=== PATIENT | female | born 1975 | race Caucasian/White ===

== ENCOUNTER 2016-10-31 10:24 | Emergency (ER) | payer OTHER ==
[2016-10-31 10:50] VITALS: BP 113/74
--- NOTE | 2016-10-31 11:10 | RAD ---
HISTORY: Cough, fever COMPARISONS: March 15, 2007 VIEWS: 4: Frontal dual-energy and lateral views of the chest. FINDINGS: CARDIOMEDIASTINAL SILHOUETTE: The cardiomediastinal silhouette is normal. WEN: The wen are normal. PLEURA: The costophrenic angles are sharp. No pleural abnormalities are noted. LUNG PARENCHYMA: The lungs are clear. ABDOMEN: The upper abdomen is clear. There is no subphrenic gas. BONES AND SOFT TISSUES: No bone or soft tissue abnormalities are noted. OTHER: None. IMPRESSION: NO ACTIVE CARDIOPULMONARY DISEASE.
--- NOTE | 2016-10-31 11:46 | UC ---
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 Cough for three days and started to become "a little bit" productive last night. Chest discomfort "from coughing " and back pain for one day. Denies any other symptoms. Patient's daughter has similar but less sever and shorter duration symptoms three weeks ago and was diagnosed with a viral illness. 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 PCP Gina Gardner." Temp 101.7 this AM and reduced with tylenol. has menses currently. mildly productive cough. has been sleeping a lot. + body aches, no rash. appetite down slighty. no vomiting, nausea or diarrhea. no ST, sinus pain or ear ache. no stiff neck. no dysuria. c/o a lot of night time perspiration. - History of Current Complaint Chief Complaint: UCGeneralIllness Stated Complaint: FEVER, ACHY BODY, COUGH Time Seen by Provider: 10/31/16 10:50 Hx Last Menstrual Period: 10/29/16 - Allergies/Home Medications Allergies/Adverse Reactions: Allergies Allergy/AdvReac Type Severity Reaction Status Date / Time environment Allergy Sneezing Uncoded 10/31/16 10:45 Home Medications: Home Medications Acetaminophen [Acetaminophen Extra Stren] 1,000 mg PO Q6H PRN 10/31/16 [History Confirmed 10/31/16] guaiFENesin ER TAB [Mucinex*] 600 mg PO ONCE 10/31/16 [History Confirmed ] PMH/Surg Hx/FS Hx/Imm Hx Previously Healthy: Yes - Surgical History Surgical History: Yes Surgery Procedure, Year, and Place: Gastric Bypass, 2011, [place]; Bilateral Carpal Tunnel, 2009, [place] - Family History Known Family History: Positive: Hypertension - Social History Alcohol Use: Occasionally Substance Use Type: None Smoking Status (MU): Never Smoked Tobacco Review of Systems Constitutional: Fever, Chills, Fatigue Skin: Negative Eyes: Negative ENT: Negative Respiratory: Cough Cardiovascular: Negative Gastrointestinal: Negative Genitourinary: Negative Motor: Negative Neurovascular: Negative Musculoskeletal: Myalgia Neurological: Negative Psychological: Negative All Other Systems Reviewed And Are Negative: Yes Physical Exam Triage Information Reviewed: Yes Appearance: Ill-Appearing - mild, dressed well with make up. very pleasant Vital Signs: Initial Vital Signs Temp 98 F 10/31/16 10:42 Pulse 102 10/31/16 10:42 Resp 18 10/31/16 10:42 BP 113/74 10/31/16 10:42 Pulse Ox 97 10/31/16 10:42 Vital Signs Reviewed: Yes Eye Exam: Normal ENT Exam: Normal ENT: Positive: Hearing grossly normal, Pharynx normal, TMs normal. Negative: Pharyngeal erythema, Nasal congestion, Tonsillar swelling, Tonsillar exudate Dental Exam: Normal Neck exam: Normal Neck: Positive: Supple, Nontender, No Lymphadenopathy. Negative: Nuchal Rigidity Respiratory Exam: Normal Respiratory: Positive: Lungs clear, Normal breath sounds, No respiratory distress, No accessory muscle use. Negative: Crackles, Rhonchi, Stridor, Wheezing Cardiovascular Exam: Normal Cardiovascular: Positive: RRR, No Murmur, Pulses Normal Abdominal Exam: Normal Abdomen Description: Positive: Nontender, Soft. Negative: CVA Tenderness (R), CVA Tenderness (L) Bowel Sounds: Positive: Present Musculoskeletal Exam: Normal Neurological Exam: Normal Psychological Exam: Normal Skin Exam: Normal UC Diagnostic Evaluation - Laboratory O2 Sat by Pulse Oximetry: 97 Respiratory Course/Dx - Course Course Of Treatment: CXR neg, flu neg. UA with blood (with callahan) - Differential Dx/Diagnosis Differential Diagnosis/HQI/PQRI: Bronchitis, Influenza, Lower Resp Infection, Sinusitis, Other - viral syndrome Provider Diagnoses: viral syndrome Discharge - Discharge Plan Condition: Stable Disposition: HOME Prescriptions: Benzonatate CAP* [Tessalon 100 MG CAP*] 100 mg PO TID #30 cap Patient Education Materials: Viral Syndrome (ED) Referrals: Cornelia Gardner MD [Primary Care Provider] - Additional Instructions: Chest xray is negative for any pneumonia. Make sure to hydrate yourself well. Flu swab is negative. continue with tylenol and or ibuprofen for fevers and body aches. You should follow up if your symptoms worsen. Otherwise, follow up with your PCP in 2 days. We talked about the majority of bronchitis cases are viral.
== END 2016-10-31 12:27 | disposition home or self-care (01) ==
LOC: UCCORT 10:24
DX: B34.9 Viral infection, unspecified (principal); Z98.84 Bariatric surgery status
CPT/HCPCS: 71020; 81003; 87502; 99212; G0463

== ENCOUNTER 2016-11-05 09:03 | Emergency (ER) | payer OTHER ==
[2016-11-05 09:37] VITALS: BP 116/80
--- NOTE | 2016-11-05 10:10 | UC ---
Throat Pain/Nasal Nish HPI - HPI Summary HPI Summary: Pt seen 10/31/16 and dx w/ viral illness- CXR normal, negative flu and UA ( except blood). Starting yesterday pt c/o sore throat and "lesions inside my cheek/throat". Also broke out in "fever rash" on chest yesterday, denies itch/ pain. States she still having fever, tmax 102.7. Taking Tylenol 1000mg prn, last dose this morning 0530. Also taking tessalon cap prn, last dose 0200 today. having sore throat, fever blisters in mouth, laryngitis, persistent fever. now her and kids have it. did go to [place] recently 2 weeks ago but no tick bites. potential mosquito bite in [facility]. [ End ] - History of Current Complaint Chief Complaint: UCGeneralIllness Stated Complaint: [id number]-DI-AKZOSG,FEVER Time Seen by Provider: 11/05/16 10:02 Hx Obtained From: Patient Hx Last Menstrual Period: 10/29/16 ?: No Onset/Duration: Gradual Onset Associated Signs & Symptoms: Positive: Hoarseness, Nasal Discharge, Fever, Rash - Allergies/Home Medications Allergies/Adverse Reactions: Allergies Allergy/AdvReac Type Severity Reaction Status Date / Time environment Allergy Sneezing Uncoded 11/05/16 09:32 PMH/Surg Hx/FS Hx/Imm Hx Previously Healthy: Yes - Surgical History Surgical History: Yes Surgery Procedure, Year, and Place: Gastric Bypass, 2011, [place]; Bilateral Carpal Tunnel, 2008, [place] - Family History Known Family History: Positive: Hypertension - Social History Occupation: Employed Full-time Lives: With Family Alcohol Use: Occasionally Substance Use Type: None Smoking Status (MU): Never Smoked Tobacco Review of Systems Constitutional: Fever, Chills, Fatigue Skin: Rash ENT: Sore Throat Respiratory: Cough Musculoskeletal: Myalgia All Other Systems Reviewed And Are Negative: Yes Physical Exam Triage Information Reviewed: Yes Appearance: Well-Appearing, No Pain Distress, Well-Nourished Vital Signs: Initial Vital Signs Temp 101.6 F 11/05/16 09:26 Pulse 118 11/05/16 09:26 Resp 18 11/05/16 09:26 BP 116/80 11/05/16 09:26 Pulse Ox 98 11/05/16 09:26 Vital Signs Reviewed: Yes Eye Exam: Normal ENT Exam: Normal Dental Exam: Normal Dental: Positive: Other: - mouth with white sores in the lateral gums b/l and upper gums with sloughing of the gum line. no ecchymosis or petechiae Neck exam: Normal Neck: Positive: 1 Respiratory Exam: Normal Cardiovascular Exam: Normal Abdominal Exam: Normal Musculoskeletal Exam: Normal Neurological Exam: Normal Psychological Exam: Normal Skin Exam: Normal Throat Pain/Nasal Course/Dx - Course Course Of Treatment: 2 days ago neg flu , CXR and today neg strep . viral illness / exanthem at this time, does not look like strep rash . if fever persists in 2 days then it is day 10 of fever and will at that time start antibiotics . she is dehydrated and will check labs at this time. difficulty drawing labs and only partially completed. advised patient if fever continues, or any diarrhea , vomiting to go to ED for IV hydration. she declined hydration at this time in our UC. - Differential Dx/Diagnosis Differential Diagnosis/HQI/PQRI: Laryngitis, Peritonsillar Abscess, Pharyngitis , Sinusitis, Tonsillitis, URI Provider Diagnoses: Viral illness / fever / pharyngitis Discharge - Discharge Plan Condition: Good Disposition: HOME Prescriptions: Cefuroxime Axetil [Ceftin 500 MG TAB] 500 mg PO BID #20 tab Magic Mouth Was-RICCO/MAAL/LIDO* 5 ml SWISH SPIT QID PRN #1 bottle PRN Reason: Pain Patient Education Materials: Fever in Adults (ED) Referrals: Cornelia Gardner MD [Primary Care Provider] - 1 Day Additional Instructions: we discussed if your fever continues for another 48 hours then start the antibiotics for fever of unknown origin. We did draw blood work today to further evaluate your illness. If your symptoms worsen please go to the emergency room for further evaluation and potential fluid replacement.
== END 2016-11-05 10:58 | disposition home or self-care (01) ==
LOC: UCCORT 09:03
DX: B34.9 Viral infection, unspecified (principal); R50.9 Fever, unspecified; J02.9 Acute pharyngitis, unspecified; K13.70 Unspecified lesions of oral mucosa; Z98.84 Bariatric surgery status
CPT/HCPCS: 87040; 87651; 99212; G0463

== ENCOUNTER 2016-11-17 12:24 | Emergency (ER) | payer OTHER ==
[2016-11-17 12:57] VITALS: BP 106/77
--- NOTE | 2016-11-17 13:59 | UC ---
Throat Pain/Nasal Nish HPI - HPI Summary HPI Summary: 41 y/o female presents to the urgent care c/o or persisting oral thrust since she was discharge for the [facility] 11/11/2016 for B/L pneumonia and sepsis. Pt reports she was D/c home with Fluconazole ad Diflucan rinse, but she has finished and her tongue is worse. She hasn't been able to well or drink ay fluids since then. Pt denies fever, chest pain, SOB, Dizziness, N/V/D. Pt reports she has an appt with her PCP this coming for f/u and that all blood work and record where going to be faxed to her PCP from [facility]. Pt has not other complains - History of Current Complaint Chief Complaint: UCGeneralIllness Stated Complaint: THRUSH Time Seen by Provider: 11/17/16 12:47 Hx Obtained From: Patient Hx Last Menstrual Period: 11/12/16 ?: No Onset/Duration: Gradual Onset, Lasting Days, Still Present Severity: Severe Pain Intensity: 9 - to swallow Pain Scale Used: 0-10 Numeric Cough: None Associated Signs & Symptoms: Positive: Dysphagia. Negative: Sinus Discomfort, Nasal Discharge, Fever - Epiglottits Risk Factors Epiglottis Risk Factors: Negative - Allergies/Home Medications Allergies/Adverse Reactions: Allergies Allergy/AdvReac Type Severity Reaction Status Date / Time environment Allergy Sneezing Uncoded 11/17/16 12:42 PMH/Surg Hx/FS Hx/Imm Hx - Additional Past Medical History Additional PMH: Carpal tunnel syndrome Previously Healthy: Yes - Surgical History Surgical History: Yes Surgery Procedure, Year, and Place: Gastric Bypass, 2011, [place]; Bilateral Carpal Tunnel, 2008, [place] - Family History Known Family History: Positive: Hypertension - Social History Occupation: Employed Full-time Lives: With Family Alcohol Use: Occasionally Substance Use Type: None Smoking Status (MU): Never Smoked Tobacco Review of Systems Constitutional: Negative Skin: Negative Eyes: Negative ENT: Other - severe oral trust spreading on the tongue, pharynx, lips Respiratory: Negative Cardiovascular: Negative Gastrointestinal: Negative Genitourinary: Negative Motor: Negative Neurovascular: Negative Musculoskeletal: Negative Neurological: Negative Psychological: Negative All Other Systems Reviewed And Are Negative: Yes Physical Exam Triage Information Reviewed: Yes Appearance: Well-Appearing, No Pain Distress, Well-Nourished, Obese Vital Signs: Initial Vital Signs Temp 98.3 F 11/17/16 12:44 Pulse 140 11/17/16 12:44 Resp 16 11/17/16 12:44 BP 106/77 11/17/16 12:44 Pulse Ox 99 11/17/16 12:44 Vital Signs Reviewed: Yes Eye Exam: Normal Eyes: Positive: Conjunctiva Clear - PERRLA, EOMI, fudi grossly normal ENT: Positive: Normal ENT inspection, Hearing grossly normal, Pharyngeal erythema, TMs normal, Other: - severe creamy and yellowish plaques adherent to the tongue and oral mucosa and pharynx. lips with crusted fissures. Dental Exam: Normal Neck exam: Normal Neck: Positive: Supple, Nontender, No Lymphadenopathy Respiratory Exam: Normal Respiratory: Positive: Chest non-tender, Lungs clear, Normal breath sounds, No respiratory distress Cardiovascular Exam: Normal Cardiovascular: Positive: RRR, No Murmur, Pulses Normal, Brisk Capillary Refill Abdominal Exam: Normal Abdomen Description: Positive: Nontender, No Organomegaly, Soft. Negative: CVA Tenderness (R), CVA Tenderness (L) Bowel Sounds: Positive: Present Musculoskeletal Exam: Normal Musculoskeletal: Positive: Strength Intact, ROM Intact, No Edema Neurological Exam: Normal Psychological Exam: Normal Skin Exam: Normal Throat Pain/Nasal Course/Dx - Course Course Of Treatment: 41 y/o female presents to the urgent care c/o or persisting oral thrush since she was discharge for the [facility] 2016 for B/L pneumonia and sepsis. Pt reports she was D/c home with Fluconazole ad Diflucan rinse, but she has finished and her tongue is worse. She hasn't been able to well or drink ay fluids since then. Pt denies fever, chest pain, SOB, Dizziness, N/V/D. Pt reports she has an appt with her PCP this coming for f/u and that all blood work and records where going to be faxed to her PCP from [facility]. Hx obtained. Pt's HR is 140bpn, and asymptomatic. EKG ordered, reading: Sinus tachychardia w/ a HR of 127bpm w/o any ST-elevations. Pt with a severe oral candidiasis: severe creamy and yellowish plaques adherent to the tongue and oral mucosa and pharynx. lips with crusted fissures. Pt unaable. Pt unable to eat or drink fluids. Pt srtrongly advised to the ER for further evaluation and treatment of her Sinus tachychardia. Pt refused and requested only the treatment for Oral candidiasis.I extensively discussed with the patient the benefits and risk of leaving AMA. I also discussed the alternatives to leaving AMA, however, the patient still insists to leave the Urgent care AMA.. The nurse also strongly recommended that the patient should not leave AMA. Patient understands the risk of leaving AMA, which includes but is not restricted to . Patient is Alert and oriented times three and patient verbalizes understanding. Patient has full capacity and is cognitively intact. Patient signed the AMA form.Patient Rx Fluconazole PO, Chlotrimazole jose cruz, Mouth Magic wash to alleviate symptoms. Patient was also advised to go to ED if he changes his mind or if the symptoms worsen or other symptoms appear. Pt states she will f/u appt with her PCP on . Patient understands and agrees.Leaves the clinic ambulating A&OX3. - Differential Dx/Diagnosis Differential Diagnosis/HQI/PQRI: Laryngitis, Peritonsillar Abscess, Pharyngitis , Other - oral thrush Provider Diagnoses: 1- Oral thrush. 2- Sinus tachychardia Discharge - Discharge Plan Condition: Stable Disposition: AGAINST MEDICAL ADVICE Prescriptions: Clotrimazole JOSE CRUZ* [Mycelex Jose Cruz*] 10 mg MT SEE INSTRUCTIONS #35 jose cruz Fluconazole [Fluconazole 200 mg tab] 200 mg PO DAILY #14 tab Magic Mouth Was-RICCO/MAAL/LIDO* 5 ml SWISH SPIT QID #1 bottle Patient Education Materials: Oral Candidiasis (ED), Tachycardia (ED) Referrals: Cornelia Gardner MD [Primary Care Provider] - 2 Days Additional Instructions: 1- Please go immediately to the ER for further evaluation and treatment on your Sinus tachycardia to r/o PE, [place], pneumonia etc. 2- Please take the full course of the antifungal medications as directed. 3-Please f/u with your PCP on in your schedule appt as you mention for further management
== END 2016-11-17 13:48 | disposition left against medical advice (07) ==
LOC: UCCORT 12:24
DX: B37.0 Candidal stomatitis (principal); R00.0 Tachycardia, unspecified; Z53.21 Procedure and treatment not carried out due to patient leaving prior to being seen by health care provider
CPT/HCPCS: 93005; 99212; G0463

== ENCOUNTER 2017-07-30 13:40 | Emergency (ER) | payer OTHER ==
--- OUTSIDE RECORDS SUMMARY | 2017-07-30 14:57 | XMS REPORT ---
:1975 External Reference #:[id number] Author Organization [facility] Address [address] [place] [address] Phone [phone] Care Team Providers Name Role Phone Gordon Melo NP Care Team Information Social Sciences Lecturer Unavailable Gordon Melo NP Primary Care Physician Unavailable Payers Type Date Identification Numbers Payment Provider Subscriber Commercial Policy Number: [id number] [facility] Cassandra Pate PayID: [id number] [address] [place] [address] Problems Date Description Provider Status Onset: 07/16/2017 Abnormal weight gain Joshua Rubio MD Active Onset: 07/16/2017 Abdominal pain Joshua Rubio MD Active Onset: 07/16/2017 Nausea and vomiting Joshua Rubio MD Active Family History Date Family Member(s) Problem(s) Comments General Non Contributory Father Diabetes Mellitus Type 2 Social History Type Date Description Comments Marital Status Home Environment Lives With spouse 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 Cigarette Use Never Smoked Cigarettes Smokeless Tobacco Never Used Smokeless Tobacco ETOH Use Never used alcohol Recreational Drug Use Never Used Drugs Smoking Patient denies history of smoking Daily Caffeine Consumes on average 1 cup of regular coffee per day Allergies, Adverse Reactions, Alerts Date Description Reaction Status Severity Comments 06/14/2017 NKDA active Medications Medication Date Status Form Strength Qnty SIG Indications Ordering Provider Zofran 07/16/ Active Tablets 4mg 90tabs 1 by mouth R11.2 Joshua Rubio, 2018 three times MD a day as needed Omeprazole 07/16/ Active Capsules DR 20mg 90caps 1 tab by R11.2 Joshua Rubio2017 mouth every MD day every morning Vitamin D-3 00/ Active Capsules 1000Unit 1 cap once Unknown 0000 a day. Iron 00/ Active Tablets 71(65Fe) 1 tabl by Unknown 0000 mg mouth daily Vitamin B12 / Active Tablets ER 5000mcg 1 by mouth Unknown 0000 once a day Magnesium / Active Tablets 200mg 1 by mouth Unknown 0000 every day Albuterol / Active Nebulizer (2.5mg/3ML nebulized Unknown Sulfate 0000 ) 0.083% every [address] [facility] / Active Capsules 600mg 1 po qd Unknown Wort 0000 Loratadine / Active Tablets 10mg 1 by mouth Unknown 0000 every day Symbicort / Active Aerosol 160-4.5mcg 2 puff Unknown 0000 /Act twice a day Vital Signs Date Vital Result Comment 07/16/2017 BP Systolic Sitting Right Arm 118 mmHg BP Diastolic Sitting Right Arm 80 mmHg Heart Rate 103 /min Respiratory Rate 18 /min Height 64 inches 5'4" Weight 190.00 lb BMI (Body Mass Index) 32.6 kg/m2 BSA (Body Surface Area) 1.91 m2 [place] body weight in kilograms 54 07/16/2017 BP Systolic Sitting Left Arm 98 mmHg BP Diastolic Sitting Left Arm 74 mmHg Heart Rate 75 /min Respiratory Rate 16 /min Weight 190.00 lb O2 % BldC Oximetry 94 % Ora 06/17/2017 BP Systolic Sitting Left Arm 100 mmHg BP Diastolic Sitting Left Arm 72 mmHg Heart Rate 87 /min Respiratory Rate 16 /min Weight 196.00 lb O2 % BldC Oximetry 98 % Ora Results Test Date Test Result H/L Range Note Allergens,Zone 1 06/17/2017 mRast Class (Text Only) (SEE NOTE) 1, 2 D Pteronyssinus <0.10 kU/L Class 0 1 D Farinae Mite <0.10 kU/L Class 0 1 Cat Hair/Dander <0.10 kU/L Class 0 1 Dog Hair/Dander <0.10 kU/L Class 0 1 Bluegrass,[place] <0.10 kU/L Class 0 1 [place] Grass <0.10 kU/L Class 0 1 Bahia Grass <0.10 kU/L Class 0 1 Cockroach,Honduran <0.10 kU/L Class 0 1 Penicillium Not <0.10 kU/L Class 0 1 Cladosporium Herbarum <0.10 kU/L Class 0 1 Apergillis Fumigatus Ige <0.10 kU/L Class 0 1 Mucor Racemosus <0.10 kU/L Class 0 1 Alternaria Alternata <0.10 kU/L Class 0 1 Stemphylium Bot <0.10 kU/L Class 0 1 Birch,White <0.10 kU/L Class 0 1 [place],White <0.10 kU/L Class 0 1 Elm,Honduran (White) <0.10 kU/L Class 0 1 Rk,White <0.10 kU/L Class 0 1 Hazelnut Tree T004 Ige <0.10 kU/L Class 0 1 [place],White <0.10 kU/L Class 0 1 [place],White <0.10 kU/L Class 0 1 Mcmullen,Mountain <0.10 kU/L Class 0 1 Ragweed,Short/ <0.10 kU/L Class 0 1 Mugwort <0.10 kU/L Class 0 1 Plantain,Tristanian <0.10 kU/L Class 0 1 Pigweed,Rough <0.10 kU/L Class 0 1 Sheep Pala (DO <0.10 kU/L Class 0 1 Nettle <0.10 kU/L Class 0 1 Maple/Morgan Ige T001 <0.10 kU/L Class 0 1, 3 Laboratory test finding 06/17/2017 Immunoglobulin E,Total 5 IU/mL 0-100 1, 4 CBS W/Automated Diff 06/17/2017 White Blood Count 9.3 K/uL 3.1-10.7 1 Red Blood Count 4.72 M/uL 3.90-5.40 1 Hemoglobin 14.8 gm/dL 11.6-15.8 1 Hematocrit 43.8 % 36.0-46.1 1 Mean Cell Volume 92.8 fl 80.9-99.0 1 Mean Corpuscular HGB 31.4 pg 25.9-32.7 1 Mean Corpuscular HGB Conc 33.8 g/dL 30.8-34.3 1 Platelet Count 204 K/uL 155-360 1 Red Cell Distri Width SD 43.8 fl 3-47 1 Red Cell Distri Width %CV 13.0 % 11.7-14.4 1 Mean Platelet Volume 11.3 fL 8.9-12.4 1 Neut% 73.3 % High 40.4-72.8 1 Lymph % 17.3 % Low 20.0-42.0 1 Posey % 8.2 % 4.3-13.2 1 Eo% 1.0 % 0.0-6.6 1 Bas% 0.2 % 0.0-1.1 1 Neut# 6.82 K/uL 1.8-7.0 1 Lymph # 1.61 K/uL 1.0-4.0 1 Posey # 0.76 K/uL 0.3-0.9 1 Eos # 0.09 K/uL 0.0-0.5 1 Baso # 0.02 K/uL 0.0-0.1 1 Fungal Culture With Smear 11/11/2016 Fungal Fluorochrome Stain Fungus Stain 5, 6 Fungal Culture; Other Sources Fungus (Mycology <SEE NOTE> 5, 7 Vitamin B12 And Folate 11/11/2016 Vitamin B12 > 6000 pg/mL High 200- 900 8 Folic Acid 18.1 ng/mL High 3.1-17.5 8 Laboratory test finding 11/11/2016 Ferritin 549 ng/mL High 8-252 8 Vitamin D,25-Hydroxy 46.0 ng/mL 30.0-100.0 8, 9 Ebv Acute Infection 11/11/2016 Ebv AB Vca,Igm >160.0 U/mL High 0.0- 35.9 8, 10 Antibodies Ebv Early Antigen AB, IgG 29.0 U/mL High 0.0-8.9 8, 11 Ebv AB Vca,Igg 560.0 U/mL High 0.0-17.9 8, 12 Ebv Nuclear Antigen AB, Igg <18.0 U/mL 0.0-17.9 8, 13 Ebv Interpretation (SEE NOTE) 8, 14 Lyme AB/Western Blot 11/11/2016 Lyme Total AB/Reflex < 0.91 ISR 0.00- 0.90 8, 15 Reflex To WB Lyme Disease Antibody,QT,Igm < 0.80 index 0.00-0.79 8, 16 Laboratory test finding 11/11/2016 Mycoplasma Pneumoniae 9730 U/mL High 0- 769 8, 17 IgM Mycoplasma Pneumoniae IgG 1597 U/mL High 0-99 8, 18 1 J30.9 2 Levels of Specific IgE Class Description of Class ----- < 0.10 0 Negative 0.10 - 0.31 0/I Equivocal/Low 0.32 - 0.55 I Low 0.56 - 1.40 II Moderate 1.41 - 3.90 III High 3.91 - 19.00 IV Very High 19.01 - 100.00 V Very High >100.00 Very High 3 Performed at: [address] [id number] [employer]: Gregory Conley MD, Phone: [phone] Test(s) [id number] Cockroach, [place]uran; 532327- O121-ViL Kendra Richey were developed and had performance characteristics determined by [facility]. These tests have not been cleared or approved by the U.S. Food and Drug Administration. The FDA has determined that such clearance or approval is not necessary. These tests are used for clinical purposes. These should not be regarded as investigational or for research. 5 KIKE APODACA 11/20 TREVOR 6 Final report: Result 1 PER/Calcofluor preparation: no fungus observed 7 Fungus (Mycology) Culture Final report Result 1 No yeast or mold isolated after 4 weeks Performed at: [address] [id number] [employer]: Oma Gutierrez MD, Phone: [phone] PNEUMONIA, SESIS 9 Vitamin D deficiency has been defined by the [place] of Medicine and an Endocrine Society practice guideline as a level of serum 25-OH vitamin D less than 20 ng/mL (1,2). The Endocrine Society went on to further define vitamin D insufficiency as a level between 21 and 29 ng/mL (2). 1. IOM ([place] of Medicine). 2010. Dietary reference intakes for calcium and D. [place]: The National Academies Press. 2. Vivienne MF, Ishmael KEENAN, Sonal ROBLEDO, et al. Evaluation, treatment, and prevention of vitamin D deficiency: an Endocrine Society clinical practice guideline. JCEM. 2010; 96(4):1911-30. Performed at: [address] [id number] [employer]: Oma Gutierrez MD, Phone: [phone] 10 Negative <36.0 Equivocal 36.0 - 43.9 Positive >43.9 11 Hepatitis A, Hepatitis C and HIV antibodies may cross-react with this assay. Negative < 9.0 Equivocal 9.0 - 10.9 Positive >10.9 12 Negative <18.0 Equivocal 18.0 - 21.9 Positive >21.9 13 Negative <18.0 Equivocal 18.0 - 21.9 Positive >21.9 14 EBV Interpretation Chart Interpretation EBV-IgM EA(D)-IgG VCA-IgG EBNA-IgG EBV Seronegative - - - - Early Phase + - - - Acute Primary + +or- + - Infection Convalescence/Past - +or- + + Infection Reactivated +or- + + + Infection + Antibody Present - Antibody Absent 15 Negative <0.91 Equivocal 0.91 - 1.09 Positive >1.09 16 Negative <0.80 Equivocal 0.80 - 1.19 Positive >1.19 IgM levels may peak at 3-6 weeks post infection, then gradually decline. 17 Negative <770 Clinically significant amount of M. pneumoniae antibody not detected. Low Positive 770 - 950 M. pneumoniae specific IgM presumptively detected. It is recommended that another sample be collected 1-2 weeks later to assure reactivity. Positive >950 Highly significant amount of M. pneumoniae specific IgM antibody detected. 18 Negative: <100 Indeterminate: 100 - 320 Positive: >320 The reference interval established is intended as a baseline only. Values >100 may indicate a recent infection with Mycoplasma pneumoniae and need to be confirmed either by a positive IgM result and/or an additional specimen drawn 2-4 weeks later showing a significant increase in antibody levels. Performed at: [address] [id number] [employer]: Oma Gutierrez MD, Phone: [phone] Procedures Date CPT Code Description Status 06/25/2017 75385 Bronchospasm Provocation Evaluation Multi Spirometric Completed Determinati 06/25/2017 50229 Spirometry Completed 07/21/2010 00810 Anesthesia,Neuraxial Labor Completed Encounters Type Date Location Provider CPT E/M Dx Office Visit 07/16/2017 1:[place] [address] R11.2 R10.9 R63.5 Office Visit 06/17/2017 1:00p [place] [address] J41.0 J30.9 R06.02 Plan of Care Future Appointment(s):08/24/2017 10:10 am - Joshua Rubio MD at Operating Room10/01 1:30 pm - Joshua Rubio MD at GI01/17/2018 4:00 pm - Pedro Luis Garcia MD at Jhdusqmjusa79/04/2018 - Joshua Rubio MDR11.2 Nausea with vomiting, unspecifiedNew Medication:Zofran 4 mgOmeprazole 20 mgComments:EGDFollow up:F/U in 2 hrbhpnY02.9 Unspecified abdominal painNew Labs:Comprehensive Metabolic PanelAmylaseLipaseNew Xrays:CT, Abdomen & Pelvis W ContrastUltrasound, Abdomen LimitedComments:? internal hernia vs gallbladder fhnqnhO08.5 Abnormal weight gainComments:Potentially failed R-en-Y
--- OUTSIDE RECORDS SUMMARY | 2017-07-30 14:57 | XMS REPORT ---
:1975 External Reference #:[id number] Author Organization [facility] Address [address] [place] [address] Phone [phone] Care Team Providers Name Role Phone Gordon Melo NP Care Team Information Chassis Inspector Unavailable Gordon Melo NP Primary Care Physician Unavailable Payers Type Date Identification Numbers Payment Provider Subscriber Commercial Policy Number: [id number] 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 Cigarette Use Never Smoked Cigarettes Smokeless [...] kg/m2 BSA (Body Surface Area) 1.91 m2 [place] body weight in kilograms 54 07/16/2017 BP [...] Bahia Grass <0.10 kU/L Class 0 1 Cockroach,Faroese <0.10 kU/L Class 0 1 Penicillium Not <0.10 kU/L Class 0 1 Cladosporium Herbarum <0.10 kU/L Class 0 1 Apergillis Fumigatus Ige <0.10 kU/L Class 0 1 Mucor Racemosus <0.10 kU/L Class 0 1 Alternaria Alternata <0.10 kU/L Class 0 1 Stemphylium Bot <0.10 kU/L Class 0 1 Birch,White <0.10 kU/L Class 0 1 [place],White <0.10 kU/L Class 0 1 Elm,Faroese (White) <0.10 kU/L Class 0 1 Rk,White <0.10 kU/L Class 0 1 Hazelnut Tree T004 Ige <0.10 kU/L Class 0 1 [place],White <0.10 kU/L Class 0 1 [place],White <0.10 kU/L Class 0 1 [place],Mountain <0.10 kU/L Class 0 1 Ragweed,Short/ <0.10 kU/L Class 0 1 Mugwort <0.10 kU/L Class 0 1 Plantain,Palestinian <0.10 kU/L Class 0 1 Pigweed,Rough <0.10 kU/L Class 0 1 Sheep [place] (DO <0.10 kU/L Class 0 1 Nettle <0.10 kU/L Class 0 1 Maple/[place] Ige T001 <0.10 kU/L Class 0 1, [...] Lymph % 17.3 % Low 20.0-42.0 1 [place]ander % 8.2 % 4.3-13.2 1 Eo% 1.0 % 0.0-6.6 1 Bas% 0.2 % 0.0-1.1 1 Neut# 6.82 K/uL 1.8-7.0 1 Lymph # 1.61 K/uL 1.0-4.0 1 Lander # 0.76 K/uL 0.3-0.9 1 Eos # [...] High >100.00 Very High 3 Performed at: [address] [id number] Residential Team Leader: Gregory Conley MD, Phone: [phone] Test(s) [id number]-LlB Cockroach, Faroese; 785869- Y595-ReS Kendra Richey were developed and had performance characteristics determined by [facility]. These tests have not been cleared or [...] mold isolated after 4 weeks Performed at: [address] [id number] Residential Team Leader: Oma Gutierrez MD, Phone: [phone] PNEUMONIA, SESIS 9 Vitamin D deficiency has been defined by the [place] of Medicine and an Endocrine Society practice guideline as a level of serum 25-OH vitamin D less than 20 ng/mL (1,2). The Endocrine Society went on to further define vitamin D insufficiency as a level between 21 and 29 ng/mL (2). 1. IOM ([place] of Medicine). 2010. Dietary reference intakes for calcium and D. [place]: The National Academies Press. 2. Vivienne MF, Ishmael KEENAN, Sonal ROBLEDO, et al. Evaluation, treatment, and prevention of vitamin D deficiency: an Endocrine Society clinical practice guideline. JCEM. 2010; 96(6):1911-30. Performed at: [address] [id number] Residential Team Leader: Oma Gutierrez MD, Phone: [phone] Negative <36.0 Equivocal 36.0 - 43.9 [...] significant increase in antibody levels. Performed at: [address] [id number] Residential Team Leader: Oma Gutierrez MD, Phone: [phone] Procedures Date CPT Code Description Status 06/25/2017 32524 Bronchospasm Provocation Evaluation Multi Spirometric Completed Determinati 06/25/2017 68362 Spirometry Completed 07/21/2010 97622 Anesthesia,Neuraxial Labor Completed Encounters Type Date Location Provider CPT E/M Dx Office Visit 07/16/2017 1:[place] [address] R11.2 R10.9 R63.5 Office Visit 06/17/2017 1:00p [place] [address] J41.0 J30.9 R06.02 Plan of Care Future Appointment(s):10/01/2017 1:30 pm - Joshua Rubio MD at GI01/17/2018 4:00 pm - Pedro Luis Garcia MD at Osyfsbnmjme19/04/2018 - Joshua Rubio MDR11.2 Nausea with vomiting, unspecifiedNew Medication:Zofran 4 mgOmeprazole 20 mgComments: EGDFollow up:F/U in 2 bdpueqD03.9 Unspecified abdominal painNew Labs: Comprehensive Metabolic PanelAmylaseLipaseNew Xrays:CT, Abdomen & Pelvis W ContrastUltrasound, Abdomen LimitedComments:? internal hernia vs gallbladder sbjwkjJ36.5 Abnormal weight gainComments:Potentially failed R-en-Y
== END 2017-07-30 14:45 | disposition left against medical advice (07) ==
LOC: UCCORT 13:40
DX: R05 Cough (principal); Z53.21 Procedure and treatment not carried out due to patient leaving prior to being seen by health care provider

== ENCOUNTER 2019-01-03 11:49 | Emergency (ER) | payer OTHER ==
[2019-01-03 13:23] VITALS: BP 108/77
--- NOTE | 2019-01-03 13:45 | UC ---
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 Negative : Swelling, Redness, Bruising, Fever - Allergies/Home Medications Allergies/Adverse Reactions: Allergies Allergy/AdvReac Type Severity Reaction Status Date / Time environment Allergy Sneezing Uncoded 01/03/19 13:23 Home Medications: Home Medications Budesonide/Formote 160/4.5(NF) [Symbicort 160/4.5 (NF)] 2 puff INH BID 01/03/19 [History Confirmed 01/03/19] Escitalopram Oxalate [Lexapro] 80 mg PO DAILY 01/03/19 [History Confirmed ] hydrOXYzine HCl [Hydroxyzine HCl] 10 mg PO BID 01/03/19 [History Confirmed 01/03] PMH/Surg Hx/FS Hx/Imm Hx - Additional Past Medical History Additional PMH: Gastric Bypass, 2011, [place]; Bilateral Carpal Tunnel, 2008, 2017- hernia - Surgical History Surgical History: Yes Surgery Procedure, Year, and Place: Gastric Bypass, 2011, [place]; Bilateral Carpal Tunnel, 2008, 2017-hernia - Family History Known Family History: Positive: Hypertension - Social History Alcohol Use: Rare Substance Use Type: None Smoking Status (MU): Never Smoked Tobacco Review of Systems All Other Systems Reviewed And Are Negative: Yes Constitutional: Positive: Negative Skin: Positive: Negative Is Patient Immunocompromised?: No Physical Exam Triage Information Reviewed: Yes Appearance: Well-Appearing, No Pain Distress, Well-Nourished Vital Signs: Initial Vital Signs Temp 100.1 F 01/03/19 13:18 Pulse 93 01/03/19 13:18 Resp 16 01/03/19 13:18 BP 108/77 01/03/19 13:18 Pulse Ox 100 01/03/19 13:18 Vital Signs Reviewed: Yes Eye Exam: Normal Eyes: Positive: Conjunctiva Clear Neck: Positive: Supple Respiratory: Positive: Chest non-tender, Lungs clear, Normal breath sounds Cardiovascular: Positive: RRR, No Murmur, Pulses Normal Musculoskeletal: Positive: Other: - bilateral wrist: no swelling, no erythema, + diffuse tenderness, decrese strength, + tinnel sign bilateraly Hand/Wrist Course/Dx - Differential Dx/Diagnosis Provider Diagnosis: CTS (carpal tunnel syndrome) Discharge ED - Sign-Out/Discharge Documenting (check all that apply): Patient Departure All imaging exams completed and their final reports reviewed: No Studies - Discharge Plan Condition: Stable Disposition: HOME Patient Education Materials: Paresthesia (ED) Referrals: Cheng Romano MD [Medical Doctor] - As Soon As Possible No Primary Care Phys,NOPCP [Primary Care Provider] - Additional Instructions: CTS may need nerve conduction study referral to ortho for evaluation and tx - Billing Disposition and Condition Condition: STABLE Disposition: Home
== END 2019-01-03 13:44 | disposition home or self-care (01) ==
LOC: UCCORT 11:49
DX: G56.03 Carpal tunnel syndrome, bilateral upper limbs (principal); Z91.09 Other allergy status, other than to drugs and biological substances
CPT/HCPCS: 99211; G0463